=== PATIENT | male | born 1950 ===

== ENCOUNTER 2021-09-13 01:56 | Inpatient (IN) | payer OTHER ==
[~2021-09-13] VITALS: Ht 167.6 cm; Wt 107.0 kg
[2021-09-13] MEDS ORDERED: GLUMETZA1000 MG (02:21)
[2021-09-13] MEDS ORDERED: VASOTEC20 M1 (02:22)
[2021-09-13] MEDS ORDERED: ADVIL200 M1 (02:22)
[2021-09-13] MEDS ORDERED: ZYRTEC10 M3 (02:22)
[2021-09-13] MEDS ORDERED: SIMVASTATIN5 MG (02:22)
[2021-09-13] MEDS ORDERED: TOPROL XL25 M1 (02:22)
--- NOTE | 2021-09-13 02:23 | NUR ---
PACIENTE ALERTA Y ORIENTADO X3. REFIERE VENIR POR DOLOR EN EL FLANCO DERECHO DESDE EL BILL PASADO Y PARRA PRESENTADO REFLUJO HACE VARIOS CALABRESE.
[2021-09-13] MEDS ORDERED: LANTUS SOL100 UNIT/1 (02:24)
--- NOTE | 2021-09-13 04:00 | NUR ---
SE ORIENTA AL PACIENTE SOBRE EL TX. EXTRAE MUESTRAS DE MILDRED BAJO MEDIDAS ASEPTICAS SE ROTULAN Y ENVIAN LABORATORIO. SE CANALIZA Y ADMINISTRAN MEDICAMENTOS DULCE ORDEN MEDICA.
--- NOTE | 2021-09-13 15:30 | NUR ---
PTE ALERTA Y ORIENTADO X 3 ESFERAS EN AMAN CON BARANDAS ELEVADAS,EN COMPANIA DE FAMILIAR,AREA DE VENOPUNCION PATENTE Y CAROL EDEMA CON FLUIDOS MANTENIMIENTO,NO REFIERE DOLOR.PENDIENTE A EVALUACION DE DR GUERRERO.
--- NOTE | 2021-09-14 02:57 | NUR ---
FAMILIAR DE PTE REFIERE DOLOR DE MARY.SE REALIZAN S/V Y SE ADMINSTRA MEDICAMENTO EL CUAL TOLERA.
== END 2021-09-16 22:25 | disposition home or self-care (01) | DRG 440 ==
LOC: ER 01:56 → SEC-K 09-14 01:14 → MEDJ 09-15 00:53
PROVIDERS: ADMIT Internal Medicine; ATTEND Internal Medicine
DX: K86.1 Other chronic pancreatitis (principal); K57.30 Diverticulosis of large intestine without perforation or abscess without bleeding; R10.11 Right upper quadrant pain; K29.60 Other gastritis without bleeding; Z20.822 Contact with and (suspected) exposure to COVID-19

== ENCOUNTER 2024-03-14 02:48 | Inpatient (IN) | payer OTHER ==
[~2024-03-14] VITALS: Ht 160 cm; Wt 61.7 kg
[~2024-03-14 02:48] MED LIST: ADVIL200 M1; GLUMETZA1000 MG; LANTUS SOL100 UNIT/1; SIMVASTATIN5 MG; TOPROL XL25 M1; VASOTEC20 M1; ZYRTEC10 M3
[2024-03-14] MEDS ORDERED: ALBUTEROL SULFATE 3 ML/2.5 MG AMPUL.NEB IH STA (04:35)
[2024-03-14 05:25] LABS: HEMATOCRIT 39.5 % (39.0-48.0); HEMOGLOBIN 13.2 g/dL (13-16.00); MEAN CELL VOLUME 83.5 fL (80.0-100.00); MEAN CORPUSCULAR HEMOGLOBIN 27.8 pg (27.00-32.0); MEAN CORPUSCULAR HGB CONC 33.3 g/dl (32.0-36.0); PLATELET COUNT 368 K/uL (150-450); RED BLOOD COUNT 4.73 M/uL (4.00-6.00); RED CELL DISTRIBUTION WIDTH 14.9 % (11.5-14.5)
[2024-03-14] MEDS ORDERED: ALBUTEROL SULFATE 3 ML/2.5 MG AMPUL.NEB IH ONE (05:34)
[2024-03-14 05:48] LABS: INR 1.1; PARTIAL THROMBOPLASTIN TIME 26.5 SECONDS (22.0-34.0); PROTHROMBIN TIME 11.9 SECONDS (9.0-11.5)
[2024-03-14 05:51] LABS: ALBUMIN 2.7 gm/dL (3.4-5.0); BILIRUBIN TOTAL 0.3 mg/dL (0.3-1.2); CALCIUM 9.2 mg/dL (8.5-10.1); CREATININE SERUM 1.26 mg/dL (0.70-1.30); GFR 55.64; GLOBULINA 4.5 G/DL (2.4-3.5); POTASSIUM 4.1 mEq/L (3.5-5.1); TOTAL PROTEIN 7.2 gm/dL (6.4-8.2)
[2024-03-14 06:16] LABS: ABG PH 7.435 (7.35-7.45); ABG PO2 81.4 mmHg (80-100); ABG pCO2 38.2 mmHg (35-45); BASE EXCESS 1.1 mmol/l; BICARBONATE 25.1 mmol/l (23-25); SaO2 96.4 %; Tco2 26.3 mmol/l; allen test SATISFACTORY; o2 21 %; puncture site RADIAL LEFT
[2024-03-14 10:25] LABS: URINE APPEARANCE Turbid; URINE BILIRRUBIN Negative (NEGATIVE); URINE BLOOD Moderate; URINE COLOR Dark Yellow; URINE KETONE Negative (NEGATIVE); URINE LEUKOCYTE Large; URINE NITRATE Positive; URINE PROTEIN 30 (NEGATIVE)
[2024-03-14 10:30] LABS: URINE CAST 8.25 uL (0.0-1.40); URINE EPITHELIAL CELLS 35.1 uL (0.0-38.8); URINE RBC 7.8 uL (0.0-20.8); URINE WBC 4322.7 uL (0.0-23.2)
[2024-03-14 11:15] LABS: URINE BACTERIA > 9821.5 uL (0.0-1933); URINE GLUCOSE 500 MG/DL (NEGATIVE)
[2024-03-14] MEDS ORDERED: PIPERACILLIN/TAZOBACTAM SODIUM 3.375 GM VIAL IV ONE ×2 (11:15→14:55)
[2024-03-14] MEDS ORDERED: LIDOCAINE HCL 1% 10ML VIAL ONE (14:00)
[2024-03-14] MEDS ORDERED: POVIDONE-IODINE 118 ML BOTT TOP ONE (14:04)
[2024-03-14] MEDS ORDERED: ONDANSETRON HCL 2 MG/ML VIAL ONE (14:04)
[2024-03-14] MEDS ORDERED: ACETAMINOPHEN 500 MG GEL..CAP PO ONE (18:07)
[2024-03-14] MEDS ORDERED: CEFTRIAXONE SODIUM 2,000 MG in 0.9 % SODIUM CHLORIDE 100 ML IV SCH (18:10)
[2024-03-14] MEDS ORDERED: 0.9 % SODIUM CHLORIDE 1,000 ML IV SCH (18:15)
[2024-03-14] MEDS ORDERED: ACETAMINOPHEN 325 MG TABLET PO PRN (18:15)
[2024-03-14] MEDS ORDERED: INSULIN LISPRO 1,000 UNIT/10 ML UNITS SUBCUTANEO PRN (18:15)
[2024-03-14] MEDS ORDERED: DEXTROSE 50 % IN WATER 0.5 G/ML DISP.SYRIN IV PRN (18:15)
[2024-03-14] MEDS ORDERED: ENALAPRIL MALEATE 10 MG TABLET PO SCH (18:24)
[2024-03-14] MEDS ORDERED: METOPROLOL TARTRATE 50 MG TABLET PO SCH (18:25)
[2024-03-14] MEDS ORDERED: ACETAMINOPHEN 500 MG GEL..CAP PO PRN (18:30)
[2024-03-14] MEDS ORDERED: CEFTRIAXONE SODIUM 2,000 MG VIAL ONE (18:53)
[2024-03-14] MEDS ORDERED: FAMOTIDINE/PF 20 MG in 0.9 % SODIUM CHLORIDE 8 ML IV PUSH SCH (21:00)
[2024-03-14 22:03] VITALS: BP 130/58
[2024-03-15 04:07] VITALS: BP 134/63
[2024-03-15 05:38] LABS: HEMATOCRIT 40.5 % (39.0-48.0); HEMOGLOBIN 13.7 g/dL (13-16.00); MEAN CORPUSCULAR HEMOGLOBIN 28.4 pg (27.00-32.0); MEAN CORPUSCULAR HGB CONC 33.9 g/dl (32.0-36.0); PLATELET COUNT 363 K/uL (150-450); RED BLOOD COUNT 4.83 M/uL (4.00-6.00); RED CELL DISTRIBUTION WIDTH 14.8 % (11.5-14.5)
[2024-03-15 09:36] VITALS: BP 133/70
[2024-03-15] MEDS ORDERED: MEROPENEM 1,000 MG in 0.9 % SODIUM CHLORIDE 100 ML IV SCH (10:26)
[2024-03-15] MEDS ORDERED: FAMOTIDINE/PF 20 MG/2 ML VIAL ONE (10:34)
[2024-03-15] MEDS ORDERED: SODIUM CL 0.9% 100 ML IV.SOLN IV ONE ×2 (13:09→17:08)
[2024-03-15] MEDS ORDERED: ENALAPRIL MALEATE 10 MG TABLET PO SCH (17:00)
[2024-03-15] MEDS ORDERED: METOPROLOL TARTRATE 50 MG TABLET PO SCH (17:00)
[2024-03-15] MEDS ORDERED: FINASTERIDE 5 MG TABLET PO SCH (17:00)
[2024-03-15 18:33] VITALS: BP 169/77
[2024-03-15] MEDS ORDERED: CLONIDINE HCL 0.1 MG TABLET PO SCH (21:00)
[2024-03-16 02:59] VITALS: BP 137/69; O2SAT 98
[2024-03-16] MEDS ORDERED: LEVOTHYROXINE SODIUM 25 MCG TABLET PO SCH (06:00)
[2024-03-16] MEDS ORDERED: ATORVASTATIN CALCIUM 40 MG TABLET PO SCH (09:00)
[2024-03-16 09:44] VITALS: BP 140/74; O2SAT 95
[2024-03-16] MEDS ORDERED: CEFTRIAXONE SODIUM 2,000 MG in 0.9 % SODIUM CHLORIDE 100 ML IV SCH (10:07)
[2024-03-16 17:40] VITALS: BP 127/66; O2SAT 97
[2024-03-16] MEDS ORDERED: HALOPERIDOL 0.5 MG TABLET PO SCH (21:00)
[2024-03-17 02:11] VITALS: BP 90/44; O2SAT 99
[2024-03-17 09:48] VITALS: BP 145/65; O2SAT 96
[2024-03-17 10:14] LABS: ALBUMIN 2.4 gm/dL (3.4-5.0); BILIRUBIN TOTAL 0.32 mg/dL (0.3-1.2); CALCIUM 9.6 mg/dL (8.5-10.1); CREATININE SERUM 0.89 mg/dL (0.70-1.30); GFR 83.11; POTASSIUM 4.65 mEq/L (3.5-5.1); TOTAL PROTEIN 7.4 gm/dL (6.4-8.2)
[2024-03-17 11:16] LABS: HEMATOCRIT 39.8 % (39.0-48.0); HEMOGLOBIN 13.6 g/dL (13-16.00); MEAN CELL VOLUME 83.2 fL (80.0-100.00); MEAN CORPUSCULAR HEMOGLOBIN 28.5 pg (27.00-32.0); MEAN CORPUSCULAR HGB CONC 34.2 g/dl (32.0-36.0); PLATELET COUNT 394 K/uL (150-450); RED BLOOD COUNT 4.79 M/uL (4.00-6.00); RED CELL DISTRIBUTION WIDTH 14.8 % (11.5-14.5)
[2024-03-17 18:21] VITALS: BP 162/82
[2024-03-17 18:23] VITALS: BP 162/82
[2024-03-18 02:19] VITALS: BP 93/47
[2024-03-18 09:56] VITALS: BP 109/61; O2SAT 98
[2024-03-18 18:49] VITALS: BP 164/66
[2024-03-19 02:13] VITALS: BP 111/55
[2024-03-19 06:25] LABS: HEMATOCRIT 40.3 % (39.0-48.0); HEMOGLOBIN 13.5 g/dL (13-16.00); MEAN CELL VOLUME 83.4 fL (80.0-100.00); MEAN CORPUSCULAR HGB CONC 33.6 g/dl (32.0-36.0); PLATELET COUNT 397 K/uL (150-450); RED BLOOD COUNT 4.83 M/uL (4.00-6.00); RED CELL DISTRIBUTION WIDTH 14.4 % (11.5-14.5)
[2024-03-19 09:15] VITALS: BP 122/63; O2SAT 98
[2024-03-19 18:24] VITALS: BP 153/65; O2SAT 98
[2024-03-19] MEDS ORDERED: FAMOtidine 20 MG TABLET PO SCH (21:00)
[2024-03-20 00:55] VITALS: BP 122/65; O2SAT 97
[2024-03-20 08:42] VITALS: BP 122/57
[2024-03-20 18:12] VITALS: BP 115/52
[2024-03-21 03:07] VITALS: BP 119/62
[2024-03-21 08:40] VITALS: BP 116/53
[2024-03-21 17:45] VITALS: BP 143/69; O2SAT 98
[2024-03-22 02:38] VITALS: BP 134/74; O2SAT 96
[2024-03-22 08:43] VITALS: BP 110/50
[2024-03-22 14:00] LABS: HEMATOCRIT 39.7 % (39.0-48.0); HEMOGLOBIN 13.4 g/dL (13-16.00); MEAN CELL VOLUME 82.6 fL (80.0-100.00); MEAN CORPUSCULAR HGB CONC 33.9 g/dl (32.0-36.0); PLATELET COUNT 371 K/uL (150-450); RED CELL DISTRIBUTION WIDTH 14.6 % (11.5-14.5)
[2024-03-22 14:46] LABS: ALBUMIN 2.4 gm/dL (3.4-5.0); BILIRUBIN TOTAL 0.29 mg/dL (0.3-1.2); CALCIUM 9.4 mg/dL (8.5-10.1); CREATININE SERUM 0.98 mg/dL (0.70-1.30); GFR 74.36; GLOBULINA 4.7 G/DL (2.4-3.5); POTASSIUM 4.67 mEq/L (3.5-5.1); TOTAL PROTEIN 7.1 gm/dL (6.4-8.2)
[2024-03-22 21:38] VITALS: BP 142/72; O2SAT 98
[2024-03-23 01:58] VITALS: BP 103/51
[2024-03-23 09:37] VITALS: BP 109/63; O2SAT 98
== END 2024-03-23 17:51 | disposition home or self-care (01) | DRG 872 ==
LOC: ER 02:48 → MEDJ 18:34
PROVIDERS: General Practice; Student in an Organized Health Care Education/Training Program; ADMIT Internal Medicine; ATTEND Internal Medicine
PROC: BB24ZZZ Computerized Tomography (CT Scan) of Bilateral Lungs (ICD-10-PCS; principal; 2024-03-14)
PROC: BW40ZZZ Ultrasonography of Abdomen (ICD-10-PCS; 2024-03-14)
PROC: 3E0F7GC Introduction of Other Therapeutic Substance into Respiratory Tract, Via Natural or Artificial Opening (ICD-10-PCS; 2024-03-14)
DX: A41.89 Other specified sepsis (principal); N39.0 Urinary tract infection, site not specified; D72.829 Elevated white blood cell count, unspecified; R06.02 Shortness of breath; R05.9 Cough, unspecified; F41.9 Anxiety disorder, unspecified; E11.9 Type 2 diabetes mellitus without complications; I10 Essential (primary) hypertension; B96.1 Klebsiella pneumoniae [K. pneumoniae] as the cause of diseases classified elsewhere; Z79.84 Long term (current) use of oral hypoglycemic drugs